=== PATIENT | male | born 1970 | race Caucasian/White ===

== ENCOUNTER 2020-12-28 10:47 | Outpatient (CLI) | payer BC, SELFPAY ==
--- NOTE | ~2020-12-28 | XR_ITS ---
XR chest 2V DATE: 12/28/2020 11:10 INDICATION: Shortness of breath, cough TECHNIQUE: PA and lateral views COMPARISON: None FINDINGS: There is prominent bilateral pulmonary hyperinflation with flattening the diaphragm, increa sed retrosternal airspace, consistent with COPD. No pulmonary infiltrate or consolidation, pleural effusion or pulmonary vascular congestion or pneumo thorax is detected. Normal heart size. No hilar or mediastinal enlargement. Included skeletal structures are unremarkable. IMPRESSION: COPD Reviewed, dictated and finalized at location A. IMPRESSION: COPD
== END 2020-12-28 10:48 | disposition home or self-care (01) ==
LOC: ANHIMG 10:53
PROVIDERS: PCP Family Medicine; Visit Provider Physician Assistant
DX: R06.02 Shortness of breath (principal); R05.9 Cough, unspecified; J44.9 Chronic obstructive pulmonary disease, unspecified
CPT/HCPCS: 71046

== ENCOUNTER 2021-01-20 00:37 | Day surgery (SDC) | payer BC, SELFPAY ==
[2021-01-11 14:51] VITALS: BMI 19.0
--- NOTE | 2021-01-19 10:33 | WPDANESEPPF ---
Anes - Initial Pre Proc Eval Procedure: Operation Date: 01/20/21 09:00 Proposed Procedures p Esophagogastroduodenoscopy & Colonoscopy - Chad Tobias MD Date/Time: 01/19/21 10:33 Surgeon: Chad Tobias MD Pre Op Diagnosis: melena, dysphagia Patient Data Age: 50 Gender: M Height: 1.91 m Weight: 69 kg Allergies Allergy/AdvReac Type Severity Reaction Status Date / Time bupropion Allergy Mild unk Verified 01/20/21 08:12 Sulfa (Sulfonamide Allergy Mild unk Verified 01/20/21 08:12 Antibiotics) cephalexin Allergy Unknown unk Verified 01/20/21 08:12 cyclobenzaprine Allergy Unknown unk Verified 01/20/21 08:12 Penicillins Allergy Unknown unk Verified 01/20/21 08:12 sulfadiazine Allergy Unknown unk Verified 01/20/21 08:12 sulfanilamide Allergy Unknown unk Verified 01/20/21 08:12 tetracycline Allergy Unknown unk Verified 01/20/21 08:12 Home Medications Medication Instructions Recorded Confirmed Type albuterol sulfate 90 mcg/actuation 1 puff INHALATION Q4H PRN 12/28/20 01/13/21 History aerosol inhaler fluticasone propionate 50 1 spray INTRANASAL Q12H #18.2 ml 12/28/20 01/20/21 Rx mcg/actuation nasal spray,suspension fluoxetine 10 mg tablet 10 mg PO DAILY #30 tablet 01/13/21 01/20/21 Rx Patient hx anesthesia problems: none Family hx anesthesia problems: none Results Review: All pre-operative results and documents have been reviewed as part of the pre-operative evaluation. [facility] Past Medical History Medical History (Updated 01/19/21 @ 10:33 by Darío Forman DO) COPD (chronic obstructive pulmonary disease) Surgical History Surgical History (Updated 01/19/21 @ 10:33 by Darío Forman DO) S/P lumbar fusion Social History Social History Social History: Smoking packs per day: 1 Smoking cigarettes per day: 20.0 Years smoked: 15 Smoking pack-years: 15.00 Tobacco type: cigarettes Second hand tobacco smoke exposure: Yes Alcohol intake: current Drinks per week: 1 Substance use: never Substance use type: does not use Living arrangements: with family Gender identity (if verbalized by the patient): Male Spiritual care concerns: No Anes - Eval Final PreProcedure Day of Procedure 01/19/21 10:33 Patient weight: thin Heart: regular rate and rhythm Lungs: clear to auscultation and normal air movement Airway: Mallampati scale class II Neurological: alert and oriented Last oral intake: >/= 8 hours ASA classification: III Emergent: no Anesthetic plan: proceed Anesthesia type and monitoring: general GIVS and standard monitoring Results Review: All pre-operative results and documents have been reviewed as part of the pre-operative evaluation. Informed Consent: The patient's anesthetic plan and its attendant risks and benefits were discussed with the patient/family/POA. Questions were solicited and answers provided to the satisfaction of the patient/family/POA.
[2021-01-20 08:13] VITALS: BP 108/67; PULSE 65; RESP 20; TEMP 36.5; O2SAT 99; BMI 19.6
[2021-01-20] MEDS: LACTATED RINGERS 1,000 ML 150 ML IV CONT (08:23)
--- NOTE | 2021-01-20 08:49 | WPDGICN ---
Assessment and Plan Assessment and plan (1) Blood in stool: Code(s): K92.1 - Melena Status: Acute Assessment and Plan: Patient describes blood admixed with his stools. Gives a distant history of colon ulcers that is of questionable historical significance. Plan is for colonoscopy to evaluate more thoroughly. High-fiber diet advised further recommendations will be given after endoscopy. CBC will be obtained because recent CBC revealed quite elevated hemoglobin. (2) Dysphagia: Code(s): R13.10 - Dysphagia, unspecified Status: Acute Assessment and Plan: Patient complains difficulty swallowing both solids and liquids. Etiology of this remains unclear. An EGD will be performed to exclude organic disease. Often this type of history is suggestive for spasms, or oropharyngeal type dysphagia. GI Consult Note Consult date/time: 01/20/21 08:49 HPI: Galo Sánchez III is a 50 year old male Presents for colonoscopy an EGD. Patient complains of blood in his stools. He describes this is brightest blood admixed with his bowel movements. There has been present for several months. He denies any associated abdominal pain. Patient does report is the child is 11 years old he had inflammation the colon. He apparently had some bleeding was told he had colon ulcerations and was treated with an antispasmodic agent . Patient has had no problems until just recently. Patient denies any weight loss. Patient's bowel habits are described as essentially normal. Additionally patient complains of difficulty swallowing. He states he has substernal pressure when swallowing all types of food including liquids and solids. He has tried no medications for this he has not tried antacids or other therapy an EGD has been requested to assess this. His family history is reported to be noncontributory. Review of Systems Review of Systems: All systems reviewed & are unremarkable except as noted in HPI and below PMFSH Past Medical History Medical History (Updated 01/20/21 @ 08:52 by Chad Tobias MD) COPD (chronic obstructive pulmonary disease) Surgical History Surgical History (Updated 01/19/21 @ 10:33 by Darío Forman DO) S/P lumbar fusion Social History Social History Social History: Smoking packs per day: 1 Smoking cigarettes per day: 20.0 Years smoked: 15 Smoking pack-years: 15.00 Tobacco type: cigarettes Second hand tobacco smoke exposure: Yes Alcohol intake: current Drinks per week: 1 Substance use: never Substance use type: does not use Living arrangements: with family Gender identity (if verbalized by the patient): Male Spiritual care concerns: No Meds Home Medications and Allergies Home Medications Medication Instructions Recorded Confirmed Type albuterol sulfate 90 mcg/actuation 1 puff INHALATION Q4H PRN 12/28/20 01/13/21 History aerosol inhaler fluticasone propionate 50 1 spray INTRANASAL Q12H #18.2 ml 12/28/20 01/20/21 Rx mcg/actuation nasal spray,suspension fluoxetine 10 mg tablet 10 mg PO DAILY #30 tablet 01/13/21 01/20/21 Rx Allergies Allergy/AdvReac Type Severity Reaction Status Date / Time bupropion Allergy Mild unk Verified 01/20/21 08:12 Sulfa (Sulfonamide Allergy Mild unk Verified 01/20/21 08:12 Antibiotics) cephalexin Allergy Unknown unk Verified 01/20/21 08:12 cyclobenzaprine Allergy Unknown unk Verified 01/20/21 08:12 Penicillins Allergy Unknown unk Verified 01/20/21 08:12 sulfadiazine Allergy Unknown unk Verified 01/20/21 08:12 sulfanilamide Allergy Unknown unk Verified 01/20/21 08:12 tetracycline Allergy Unknown unk Verified 01/20/21 08:12 Vital Signs Vital Signs - 24 hr 01/20/21 08:13 Temperature 97.7 F Pulse Rate 65 Respiratory Rate 20 Blood Pressure 108/67 Pulse Oximetry 99 Exam Narrative: Physical exam reveals pa
--- NOTE | 2021-01-20 09:22 | SUR.OPER ---
EGD ENDED 913, COLONOSCOPY STARTED 920
[2021-01-20 09:46] VITALS: BP 108/74; PULSE 60; RESP 16; O2SAT 98
[2021-01-20 09:56] VITALS: BP 110/72; PULSE 60; RESP 18; O2SAT 98
[2021-01-20 10:06] VITALS: BP 127/86; PULSE 64; RESP 18; O2SAT 98
[2021-01-20 10:26] LABS: Hematocrit 54.5 % (42.0-52.0); Hemoglobin 18.9 g/dL (14.0-18.0); Mean Corpuscular HGB Conc 34.7 g/dl (32-36); Mean Corpuscular Hemoglobin 37.6 pg (26-34); Mean Corpuscular Volume 108.6 fl (80-100); Mean Platelet Volume 10.3 fl (7.4-10.4); Platelet Count Result 182 k/mm3 (150-375); Red Blood Count 5.02 M/mm3 (4.6-6.20); Red Cell Distribution Width 12.4 % (11.5-14.5); White Blood Count 10.2 K/mm3 (4.5-10.0)
--- NOTE | 2021-01-20 10:37 | SUR.PHASEII ---
1020: CBC DRAWN AND SENT TO LAB. PT GIVEN DR BACH'S OFFICE NUMBER AND INSTRUCTIONS TO CALL TO MAKE AN APPOINTMENT. PT GIVEN RADIOLOGY SCHEDULING PHONE NUMBER TO SCHEDULE CT SCAN OF ABDOMEN AND CHEST. PT GIVEN ALL DISCHARGE INSTRUCTIONS. STATES UNDERSTANDING WITH NO FURTHER QUESTIONS.
== END 2021-01-20 10:39 | disposition home or self-care (01) ==
PROVIDERS: PCP Family Medicine; Visit Provider Internal Medicine Gastroenterology
PROC: 0DJ08ZZ Inspection of Upper Intestinal Tract, Via Natural or Artificial Opening Endoscopic (ICD-10-PCS; CPT 43235; principal; 2021-01-20 09:00)
DX: C15.5 Malignant neoplasm of lower third of esophagus (principal); K92.1 Melena; R13.19 Other dysphagia; K63.5 Polyp of colon; K64.8 Other hemorrhoids; J44.9 Chronic obstructive pulmonary disease, unspecified; M43.26 Fusion of spine, lumbar region; F17.210 Nicotine dependence, cigarettes, uncomplicated; Z79.899 Other long term (current) drug therapy; Z79.51 Long term (current) use of inhaled steroids
CPT/HCPCS: 43239; 45385; 36415; 85027; 88305; 88342; J2704; J7120

== ENCOUNTER 2021-01-27 06:35 | Outpatient (CLI) | payer BC, SELFPAY ==
--- NOTE | ~2021-01-27 | CT_ITS ---
EXAMINATION: CT chest abdomen w con DATE: 01/27/2021 07:20 INDICATION: Malignant neoplasm of the esophagus TECHNIQUE: Transaxial computed tomographic images of the chest and abdomen were obtained after the ad ministration of 100 cc of Omnipaque 350 intravenous contrast. The dose-length product (DLP) was 310.0 0 mGy-cm. Automated exposure control and iterative reconstruction technique were employed. COMPARISON: None FINDINGS: CHEST CT: There is severe emphysema. No suspicious pulmonary nodules are identified. The lungs are free of acut e opacities. There is no pleural effusion or pneumothorax. No pathologically enlarged thoracic lymph nodes are identified. Mediastinal lymph nodes measure up to 8 mm. The heart size is normal. There is enhancement and eccentric wall thickening of the distal esophagus near the gastroesophageal junction. There is mild thoracic spondylosis. ABDOMEN CT: The liver, spleen, pancreas, gallbladder, and right adrenal gland are normal. There are nodules measu ring 1.4 and 1.1 cm on the left adrenal gland. Gastrohepatic ligament lymph nodes measure up to 10 mm in short axis. There are no dilated loops of bowel. The kidneys are unremarkable. The appendix is no rmal. There are changes of posterior fusion in the lower lumbar spine. IMPRESSION: 1. Eccentric wall thickening of the distal esophagus likely reflecting patient's biopsy-proven malign marissa. 2. Gastrohepatic ligament lymph nodes at upper limits of normal in size. 3. Indeterminate left renal lesions. 4. Severe emphysema. Reviewed, dictated and finalized at location B. IMPRESSION: 1. Eccentric wall thickening of the distal esophagus likely reflecting patient' s biopsy-proven malignancy. 2. Gastrohepatic ligament lymph nodes at upper limits of normal in size. 3. Indeterminate left renal lesions. 4. Severe emphysema.
== END 2021-01-27 06:36 | disposition home or self-care (01) ==
LOC: ANHIMG 06:40
PROVIDERS: PCP Family Medicine; Visit Provider Internal Medicine Gastroenterology
DX: C15.9 Malignant neoplasm of esophagus, unspecified (principal); N28.9 Disorder of kidney and ureter, unspecified; J43.9 Emphysema, unspecified
CPT/HCPCS: 71260; 74160; Q9967

== ENCOUNTER 2021-02-08 16:18 | Outpatient (CLI) | payer BC, SELFPAY ==
--- NOTE | ~2021-02-08 | US_ITS ---
EXAMINATION: US venous doppler LE RT DATE: 02/08/2021 17:02 INDICATION: Right lower limb edema. TECHNIQUE: Grayscale ultrasound images without and with compression and Doppler ultrasound images of the right lower extremity veins were obtained. COMPARISON: None. FINDINGS: The visualized portions of right common femoral vein, profunda (deep) femoral vein, femoral vein, pop liteal vein, peroneal veins, posterior tibial veins, and greater saphenous vein outflow are patent. IMPRESSION: 1. No deep venous thrombosis. Reviewed, dictated and finalized at location A. [employer]
== END 2021-02-08 16:19 | disposition home or self-care (01) ==
PROVIDERS: PCP Family Medicine; Visit Provider Physician Assistant
DX: M79.604 Pain in right leg (principal); M79.89 Other specified soft tissue disorders
CPT/HCPCS: 93971

== ENCOUNTER 2021-02-10 12:12 | Outpatient (CLI) | payer BC, SELFPAY ==
--- NOTE | ~2021-02-10 | XR_ITS ---
XR foot RT min 3V DATE: 02/10/2021 12:34 INDICATION: Right foot burning sensation, pain. No injury TECHNIQUE: 4 views COMPARISON: None FINDINGS: No fracture or dislocation, periosteal reaction or bone destruction. Mild osteoarthritis at the first metatarsophalangeal joint. IMPRESSION: Mild osteoarthritis at first metatarsophalangeal joint Reviewed, dictated and finalized at location A. 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
== END 2021-02-10 12:13 | disposition home or self-care (01) ==
LOC: ANHIMG 12:16
PROVIDERS: PCP Family Medicine; Visit Provider Physician Assistant
DX: M19.071 Primary osteoarthritis, right ankle and foot (principal)
CPT/HCPCS: 73630

== ENCOUNTER 2021-04-13 08:51 | Outpatient (CLI) | payer BC, SELFPAY ==
--- NOTE | ~2021-04-13 | PE_ITS ---
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 12.171 mCi of 18-fluorodeoxyglucose (18-FDG) was adminis tered i.v. Low dose computed tomography (CT) images were acquired from the base of the brain to the p roximal thighs for attenuation correction and anatomic localization. Positron emission tomography (PE T) images were acquired in the same distribution beginning 86 minutes after injection. Images includi ng fused PET/CT images were reconstructed in axial, coronal, and sagittal planes. Automated exposure control technique was employed. The dose-length product was 351.74mGy-cm. COMPARISON: CT chest and abdomen dated 01/27/2021 FINDINGS: Head/neck: There is symmetric increased activity in the oral cavity, palatine tonsils, parotid glands and ocula r muscles without CT correlate, likely physiologic. No pathologically enlarged cervical lymphadenopat hy or suspicious foci of increased FDG uptake in the visualized head or neck. Chest: Moderate emphysema. No suspicious pulmonary nodules, pneumonia or pleural effusion. Heart size is nor mal. No pericardial effusion. Thoracic aorta is normal in caliber. No pathologically enlarged or FDG avid thoracic lymphadenopathy. Small sliding-type hiatal hernia. There is mild FDG uptake at the dist almost esophagus with maximal SUV of 2.4. Abdomen/pelvis/proximal thighs: There is more prominent increased FDG uptake in the proximal stomach just below the level of the thor acic hiatus with maximal SUV of 3.9. Mild uptake in the more distal stomach with the next previous de gree of FDG uptake with maximal SUV of 3.4 along the distal lesser curvature of the stomach. No evide nt associated masses assessment on the CT images is limited by the lack of intravenous contrast. Phys iologic renal accumulation and excretion of FDG activity in the kidneys, bladder and along portions o f ureters. 2 mm nonobstructing left renal stone. Normal degree and heterogenous pattern of increased uptake throughout the liver without radiologic correlate or dominant FDG avid lesion. The gallbladder , pancreas, spleen and right adrenal gland are normal. Again seen are couple approximately 1-1.5 cm l eft adrenal nodules with low density without FDG activity consistent with adenomas. Mild uptake scatt ered throughout the bowels without radiologic correlate, also likely physiologic. No other abnormal f oci of increased FDG uptake or pathologically enlarged lymphadenopathy in the abdomen, pelvis or prox imal thighs. Musculoskeletal: No suspicious lytic, blastic or FDG avid bone lesions. IMPRESSION: 1. Small sliding-type hiatal hernia with mild increased FDG uptake at the distalmost esophagus and mi ld to moderate increased FDG uptake at the proximal stomach just below level of the diaphragm. This c ould be related to reported biopsy proven distal esophageal carcinoma and/or gastritis or reflux esop hagitis. 2. No lesion suspicious for metastatic disease in the neck, chest, abdomen or pelvis. 3. Emphysema. Reviewed, dictated and finalized at location A. 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 Small sliding-type hiatal hernia with mild increased FDG uptake at the dista lmost esophagus and mild to moderate increased FDG uptake at the proximal stoma ch just below level of the diaphragm. This could be related to reported biopsy proven distal esophageal carcinoma and/or gastritis or reflux esophagitis. 2. No lesion suspicious for metastatic disease in the neck, chest, abdomen or p joshua. 3. Emphysema.
[2021-04-13 09:16] LABS: Glucose Point of Care 84 mg/dl (65-105)
== END 2021-04-13 08:52 | disposition home or self-care (01) ==
LOC: ANHIMG 08:55
PROVIDERS: PCP Family Medicine; Visit Provider Internal Medicine Hematology & Oncology
DX: Z03.89 Encounter for observation for other suspected diseases and conditions ruled out (principal); C15.9 Malignant neoplasm of esophagus, unspecified
CPT/HCPCS: 78815; A9552

== ENCOUNTER 2021-04-23 08:15 | Outpatient (CLI) | payer BC, SELFPAY ==
[2021-04-23 08:39] LABS: Basophils Absolute Auto 0.1 K/mm3 (0.0-0.1); Basophils Percent Auto 0.8 % (0.2-1.2); Eosinophils Absolute Auto 0.1 K/mm3 (0-0.3); Eosinophils Percent Auto 1.5 % (0-4.4); Hematocrit 55.9 % (42.0-52.0); Hemoglobin 18.9 g/dL (14.0-18.0); Immature Granulocyte Absolute 0.01 K/mm3 (0.00-0.031); Immature Granulocyte Percent A 0.1 % (0-0.5); Lymphocytes Absolute Auto 2.99 K/mm3 (0.9-3.2); Lymphocytes Percent Auto 38.2 % (18.3-44.2); Mean Corpuscular HGB Conc 33.8 g/dl (32-36); Mean Corpuscular Hemoglobin 33.6 pg (26-34); Mean Corpuscular Volume 99.3 fl (80-100); Mean Platelet Volume 10.1 fl (7.4-10.4); Monocytes Absolute Auto 0.7 K/mm3 (0.1-0.6); Monocytes Percent Auto 8.3 % (2.6-8.5); Neutrophils Percent Auto 51.1 % (45.5-73.1); Platelet Count Result 236 k/mm3 (150-375); Red Blood Count 5.63 M/mm3 (4.6-6.20); Red Cell Distribution Width 16.9 % (11.5-14.5); White Blood Count 7.8 K/mm3 (4.5-10.0)
[2021-04-23 09:07] LABS: INR 1.1; Partial Thromboplastin Time 31.2 SECONDS (22.3-36.8); Prothrombin Time 13.6 Seconds (11.1-14.7)
== END 2021-04-23 08:16 | disposition home or self-care (01) ==
LOC: ANHSURGERY 08:20
PROVIDERS: PCP Family Medicine; Visit Provider Surgery
DX: Z01.818 Encounter for other preprocedural examination (principal); C15.9 Malignant neoplasm of esophagus, unspecified
CPT/HCPCS: 36415; 85025; 85610; 85730

== ENCOUNTER 2021-05-12 13:50 | Inpatient (IN) | payer BC, SELFPAY ==
[2021-04-22 15:27] VITALS: BMI 18.7
--- NOTE | 2021-04-22 15:44 | PC.NURSE ---
Addendum entered by Holli Brantley RN 05/04/21 10:30: PT TO ARRIVE AT 0830 FOR SURGERY AT 1030. PT TO STOP ELIQUIS 2 DAYS PRIOR TO SURGERY. Original Note: Report to the Outpatient Waiting Room, entrance under the green pavilion located off [facility], at time 6:00 on date 04/29/21. OR Time: 7:30. - You will be asked a series of questions to screen for COVID 19 for your protection. - A mask is required within the hospital. - No visitors are allowed at this time. Preoperative COVID Testing Requirements: No COVID Test needed if: (proof is required; if not received patient will have Rapid Test prior to entry) - Patient has received COVID Vaccine at least 14 days prior to procedure date or - Patient has positive COVID test result within last 90 days of surgery date. COVID Test needed if above criteria is not met Patients may have clear liquids (water, carbonated beverages, clear teas, apple juice) until 3 hours prior to surgery (4:30) with a maximum of 20 ounces. - No food from midnight until time of surgery Take the following medications with a SIP of water the morning of surgery: FLUOXETINE Medications to discontinue per physician: ELIQUIS Date to take last dose: PER DR. AHYES Please no make-up, nail frisian, hairspray, perfume, deodorant, or body powder the day of surgery. No jewelry (including any body piercings) or valuables the day of surgery, leave them at home. Please take a shower or bath the night before, or the morning of, surgery with an antibacterial soap. Wear comfortable, loose fitting clothing. - Jewelry must be removed prior to entering the operating room. Rings and piercings that are not removed may be cut off. - The hospital will not accept responsibility for valuables. - Please leave all valuables, including medications, at home the day of surgery. If you are going home after surgery, a licensed power screwdriver operator must drive you home. - NO public transportation without another adult. - We recommend that an adult stay with you for 24 hours following discharge. - We also recommend that you do not drive, make important decision, drink alcoholic beverages, or take any drugs that were not prescribed by your health care provider for at least 24 hours after your discharge time. Follow any additional instructions given to you from your surgeon. Telephone instructions given to CONG PICKENS and asked if any additional questions and then verbalized understanding. Patient advised to call surgeon office or pre surgery nurse liaison [phone] if any additional questions.
--- NOTE | 2021-05-04 10:30 | PC.NURSE ---
Pt states no changes in medications since initial interview. Medical history changes updated. New instructions reviewed with pt. Pt denies further questions at this time.
--- NOTE | 2021-05-11 15:47 | PM.SD2 ---
Same Day Admit/Disch: HPI History of Present Illness Chief complaint: Adenocarcinoma of Esophagus Narrative: Galo Sánchez III is a 50 year old male Who had dysphagia and anemia. He had an EGD 01/20/2021. This showed adenocarcinoma of the distal esophagus. Patient saw Dr. Mariscal as well as a thoracic surgeon. He is to have FOLFOX chemotherapy prior to esophagectomy. He is taken to surgery now for placement of a Port-A-Cath for chemotherapy administration. [facility] Past Medical History Medical History COPD (chronic obstructive pulmonary disease) Depression Esophageal cancer History of DVT (deep vein thrombosis) Tobacco use Surgical History Surgical History (Updated 05/12/21 @ 20:01 by Claudine Lr NP) H/O colonoscopy with polypectomy History of esophagogastroduodenoscopy (EGD) History of fasciotomy Right lower extremity History of insertion of tunneled central venous catheter (CVC) with port S/P lumbar fusion Family History Family History (Updated 05/12/21 @ 20:03 by Claudine Lr NP) Unknown No problems noted. 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 The patient had 3 children but 1 in a motor vehicle accident and he has 1 stepson. The patient uses edible marijuana as well as CBD. He smokes 10-15 cigarettes a day. He drinks about half a bottle whiskey a day. He is employed full-time. Code status full code. Smoking packs per day: 1 Smoking cigarettes per day: 20.0 Years smoked: 20 Smoking pack-years: 20.00 Smoking status: Current every day smoker Tobacco type: cigarettes Second hand tobacco smoke exposure: Yes Alcohol intake: current Drinks per week: 56 Alcohol use details: 6/NIGHT - [employer] Substance use: current Substance use type: marijuana Last use: 05/11/21 Living arrangements: with family Gender identity (if verbalized by the patient): Male Sexual Orientation (if Verbalized by the Patient): Straight or Heterosexual Spiritual care concerns: No Same Day Admit/Disch: Med Pre-admit Medications Home Medications Medication Instructions Recorded Confirmed Type Eliquis 5 mg PO BID 04/22/21 05/12/21 History fluoxetine 10 mg tablet 10 mg PO BID #60 tablet 04/30/21 05/12/21 Rx Exam Const: General: cooperative, comfortable, no acute distress, alert and awake; No confusion Nutritional Appearance: thin and underweight Orientation/consciousness: No confusion HENMT: Head: normocephalic, atraumatic, no contusions and no scalp lesions Ears: external ears normal General nose exam: Normal external nose present Face and sinus: face symmetric and dry mucous membranes Mouth: Yes Normal oral and palatal mucosa present and Yes tongue normal Throat: posterior oropharynx normal Eyes: Conjunctivae: conjunctivae normal Sclera: sclerae normal Pupils: Equal, round and reactive pupils present EOM: EOMs intact bilaterally Neck: Neck: normal visual inspection, no lymphadenopathy, trachea midline, supple, nontender and no JVD Thyroid: abnormal thyroid Chest: Chest palpation & inspection: normal inspection of the chest, normal palpation of entire chest wall, no masses, no tenderness and No rash Resp: Effort & Inspection: normal respiratory effort Auscultation: clear to auscultation bilaterally Cardio: Rate: regular rate Rhythm: regular rhythm GI: Inspection: normal to inspection and scaphoid GI Palp: Yes Soft to palpation, No Tenderness to palpation present (GI), No Hepatomegaly present and No Splenomegaly present Auscultation: normal bowel sounds and normoactive bowel sounds : Penis: Yes normal penis Scrotum: scrotum normal Testes: Testes normal, no masses and no testicular tenderness Skin: General skin exam: normal color, turgor normal and no erythema Lesions: no lesions Rashes: no rashes Trauma: no l
--- NOTE | 2021-05-11 16:01 | WPDANESEPPF ---
Anes - Initial Pre Proc Eval Procedure: Operation Date: 05/12/21 10:30 Proposed Procedures p Insertion of Lisa Cath - Harris Leach MD Date/Time: 05/11/21 16:01 Surgeon: Harris Leach MD Pre Op Diagnosis: Adenocarcinoma of Esophagus Patient Data Age: 50 Gender: M Height: 1.91 m Weight: 68.04 kg Allergies Allergy/AdvReac Type Severity Reaction Status Date / Time bupropion Allergy Mild Rash Verified 05/12/21 08:45 Sulfa (Sulfonamide Allergy Mild Unknown Verified 05/12/21 08:45 Antibiotics) cephalexin Allergy Unknown Other Verified 05/12/21 08:45 Penicillins Allergy Unknown Unknown Verified 05/12/21 08:45 sulfadiazine Allergy Unknown Unknown Verified 05/12/21 08:45 sulfanilamide Allergy Unknown Unknown Verified 05/12/21 08:45 tetracycline Allergy Unknown Other Verified 05/12/21 08:45 Home Medications Medication Instructions Recorded Confirmed Type Eliquis 5 mg PO BID 04/22/21 05/12/21 History fluoxetine 10 mg tablet 10 mg PO BID #60 tablet 04/30/21 05/12/21 Rx Patient hx anesthesia problems: none Family hx anesthesia problems: none Results Review: All pre-operative results and documents have been reviewed as part of the pre-operative evaluation. [facility] Past Medical History Medical History COPD (chronic obstructive pulmonary disease) Depression Esophageal cancer History of DVT (deep vein thrombosis) Tobacco use Surgical History Surgical History (Updated 05/12/21 @ 20:01 by Claudine Lr NP) H/O colonoscopy with polypectomy History of esophagogastroduodenoscopy (EGD) History of fasciotomy Right lower extremity History of insertion of tunneled central venous catheter (CVC) with port S/P lumbar fusion Family History Family History (Updated 05/12/21 @ 20:03 by Claudine Lr NP) Unknown No problems noted. Social History Social History (Updated 05/12/21 @ 20:04 by Claudine Lr NP) Social History: and his is the durable power tax attorney for healthcare. The patient had 3 children but 1 in a motor vehicle accident and he has 1 stepson. The patient uses edible marijuana as well as CBD. He smokes 10-15 cigarettes a day. He drinks about half a bottle whiskey a day. He is employed full-time. Code status full code. Smoking packs per day: 1 Smoking cigarettes per day: 20.0 Years smoked: 20 Smoking pack-years: 20.00 Smoking status: Current every day smoker Tobacco type: cigarettes Second hand tobacco smoke exposure: Yes Alcohol intake: current Drinks per week: 56 Alcohol use details: 6/NIGHT - [employer] Substance use: current Substance use type: marijuana Last use: 05/11/21 Living arrangements: with family Gender identity (if verbalized by the patient): Male Sexual Orientation (if Verbalized by the Patient): Straight or Heterosexual Spiritual care concerns: No Anes - Eval Final PreProcedure Day of Procedure 05/11/21 16:01 Patient weight: normal Heart: regular rate and rhythm Lungs: clear to auscultation and normal air movement Airway: Mallampati scale class II Neurological: alert and oriented Last oral intake: >/= 8 hours ASA classification: III Emergent: no Anesthetic plan: proceed Anesthesia type and monitoring: general GIVS Results Review: All pre-operative results and documents have been reviewed as part of the pre-operative evaluation. Informed Consent: The patient's anesthetic plan and its attendant risks and benefits were discussed with the patient/family/POA. Questions were solicited and answers provided to the satisfaction of the patient/family/POA.
[2021-05-12] VITALS (13 sets, daily range): BP systolic 99–148; BP diastolic 67–87; PULSE 59–92; RESP 14–20; TEMP 36.1–36.8; O2SAT 90–98
--- NOTE | ~2021-05-12 | XR_ITS ---
EXAMINATION: XR chest 1V portable INDICATION: Chest tube on waterseal with bubbling in seal chamber TECHNIQUE: Portable AP chest at 1252 hours COMPARISON: 0913 hours FINDINGS: The left chest tube is unchanged in position. A moderate-sized left pneumothorax has accumu lated. The lungs are free of acute opacities. There is no or pleural effusion. There is a left subcla vian port catheter ending with its tip in the superior vena cava. No pathologically enlarged thoracic lymph nodes are identified. The heart size is normal. IMPRESSION: 1. Moderate-sized left pneumothorax. These findings were discussed with Dr. Ck Aleman MD at 1303 hours on 05/14/2021. Reviewed, dictated and finalized at location A. ER OPERATOR IMPRESSION: 1. Moderate-sized left pneumothorax. These findings were discussed with Dr. Ck Aleman MD at 1303 hours on .
--- NOTE | ~2021-05-12 | XR_ITS ---
EXAMINATION: XR fl guide central line place DATE: 05/12/2021 11:28 INDICATION: Port placement. TECHNIQUE: 2 intraoperative fluoroscopic views of the chest were obtained. COMPARISON: Chest single view 05/12/2021 FINDINGS: There is a left subclavian port with tip in superior vena cava. IMPRESSION: 1. Port tip in superior vena cava. Reviewed, dictated and finalized at location A. CULTURAL COMMODITIES GRADER
--- NOTE | ~2021-05-12 | XR_ITS ---
EXAMINATION: XR chest 1V portable INDICATION: Left pneumothorax TECHNIQUE: Portable AP chest at 0526 hours COMPARISON: 05/13/2021 FINDINGS: A left-sided chest tube thorax is identified. The lungs are free of acute opacities. A left subclavian Port-A-Cath ends with its tip in the distal superior vena cava. There is no pleural effus ion. The cardiomediastinal silhouette is normal. IMPRESSION: 1. Left chest tube unchanged in position. No pneumothorax identified. Reviewed, dictated and finalized at location A. PROGRAMMER
--- NOTE | ~2021-05-12 | XR_ITS ---
XR chest 2V 05/16/2021 08:20 Indication: Left pneumothorax Procedure: AP and lateral views of the chest Comparison: Comparison to multiple prior studies sequentially, with oldest reviewed study dated 05/14. Findings: No pneumothorax identified. Stable position to the left apical chest tube. Port catheter ti p in the SVC. No there is left lower lobe airspace disease which may represent atelectasis or develop ing pneumonia. Blunting of the costophrenic recesses. Possible small effusions. Impression: 1: No pneumothorax identified. 2: Left lower lobe airspace disease which may represent atelectasis or developing pneumonia. Reviewed, dictated and finalized at location A. STENCIL MAKER Impression: 1: No pneumothorax identified. 2: Left lower lobe airspace disease which may represent atelectasis or develop ing pneumonia.
--- NOTE | ~2021-05-12 | XR_ITS ---
EXAMINATION: XR chest 1V portable DATE: 05/16/2021 15:06 INDICATION: Status post chest tube removal TECHNIQUE: frontal view of the chest was obtained. COMPARISON: Chest radiograph dated 05/16/2021 FINDINGS: Unchanged mild streaky atelectasis/scarring at the left lung base. Emphysema with increased lucency a nd some architectural distortion in the bilateral upper lung zones. No new airspace opacities, pulmon taj edema, pleural effusion or pneumothorax. The cardiomediastinal silhouette is normal. Left subclav koki central venous port catheter with tip at the caudal superior vena cava. IMPRESSION: 1. Unchanged mild streaky left basilar atelectasis/scarring. No pneumothorax. 2. Emphysema. Reviewed, dictated and finalized at location A. IDENT OF THE [place]
--- NOTE | ~2021-05-12 | XR_ITS ---
EXAMINATION: XR chest 1V portable INDICATION: Chest tube placed to waterseal TECHNIQUE: Portable AP chest at 0913 hours COMPARISON: 0526 hours FINDINGS: A left-sided chest tube is unchanged in position. No pneumothorax is identified. The lungs are free of acute opacities. There is no pleural effusion. A left subclavian Port-A-Cath ends with it s tip in the superior vena cava. The cardiomediastinal silhouette is normal. IMPRESSION: 1. No pneumothorax identified. Reviewed, dictated and finalized at location A. R CANE PLANTER
--- NOTE | ~2021-05-12 | XR_ITS ---
EXAMINATION: XR chest-chest tube insert/pos DATE: 05/12/2021 12:46 INDICATION: Left pneumothorax status post chest tube placement. TECHNIQUE: A single frontal view of the chest was obtained. COMPARISON: Chest single view at 11:54 AM, chest CT 01/27/2021 FINDINGS: There are lucencies in the lungs, consistent with emphysema. No pleural effusion or pneumot horax. A left-sided chest tube is noted. There is a left subclavian port with tip in superior vena ca va. The heart size is normal. IMPRESSION: 1. No pneumothorax. Left-sided chest tube in expected position. 2. Emphysema. Reviewed, dictated and finalized at location A. ON JAMMER
--- NOTE | ~2021-05-12 | XR_ITS ---
EXAMINATION: XR chest port-a-cath/central DATE: 05/12/2021 12:06 INDICATION: Port placement. TECHNIQUE: A single frontal view of the chest was obtained. COMPARISON: Chest 2 views 12/28/2020 FINDINGS: There is a large left pneumothorax. There is atelectasis in left lung. No pleural effusion. The heart size is normal. There is a left subclavian port with tip in superior vena cava. IMPRESSION: 1. Large left pneumothorax. Dr. Leach was aware of this finding at the time of this dictation. 2. Port tip in superior vena cava. Reviewed, dictated and finalized at location A. H FREEZER OPERATOR IMPRESSION: 1. Large left pneumothorax. Dr. Leach was aware of this finding at the time of t his dictation. 2. Port tip in superior vena cava.
--- NOTE | ~2021-05-12 | US_ITS ---
EXAMINATION: US venous doppler [facility] DATE: 05/13/2021 13:25 INDICATION: Lower limb edema TECHNIQUE: Greer scale images without and with compression and Doppler images of the bilateral lower e xtremity veins were obtained. COMPARISON: 02/08/2021 FINDINGS: The right common femoral vein, profunda femoral vein, femoral vein, popliteal vein, peroneal trunk, p osterior tibial veins, and greater saphenous vein are patent. The left common femoral vein, profunda femoral vein, femoral vein, popliteal vein, peroneal trunk, po sterior tibial veins, and greater saphenous vein are patent. IMPRESSION: 1. Patent bilateral lower extremity veins. No evidence of deep venous thrombosis. Reviewed, dictated and finalized at location A. CTOR ADULT IMPRESSION: 1. Patent bilateral lower extremity veins. No evidence of deep venous thrombosi s.
--- NOTE | ~2021-05-12 | XR_ITS ---
EXAMINATION: XR chest 1V portable DATE: 05/15/2021 05:47 INDICATION: Left pneumothorax TECHNIQUE: frontal view of the chest was obtained. COMPARISON: Chest radiograph dated 05/14/2021 FINDINGS: Unchanged apically directed left chest tube. Left subclavian central venous port catheter tip at the midsuperior vena cava. No pneumothorax. Lungs are clear with no focal airspace opacities, pulmonary edema or pleural effusio n. The cardiomediastinal silhouette is normal. Visualized bones and soft tissues are unremarkable. IMPRESSION: 1. Resolution of prior left pneumothorax. No other acute cardiopulmonary disease . Reviewed, dictated and finalized at location A. LE DBA IMPRESSION: 1. Resolution of prior left pneumothorax. No other acute cardiopulmonary diseas e .
--- NOTE | ~2021-05-12 | XR_ITS ---
EXAMINATION: XR chest 1V portable INDICATION: Left pneumothorax TECHNIQUE: Portable AP chest at 0526 hours COMPARISON: 05/12/2021 FINDINGS: A left subclavian Port-A-Cath ends with its tip in the distal superior vena cava. A left-si ded chest tube is in expected position. No pneumothorax is identified. The lungs are free of acute op acities. There is no pleural effusion. The cardiomediastinal silhouette is normal. IMPRESSION: 1. Left chest tube in position. No pneumothorax identified. Reviewed, dictated and finalized at location A. WARE APPLICATION TESTER
--- NOTE | 2021-05-12 07:52 | WPDHPUPDATE1 ---
History and Physical Update Update Date/Time: 05/12/21 07:52 History and Physical has been reviewed, including an updated exam of the patient. There are NO changes in the patient's condition. Risks, benefits, and alternatives have been discussed and questions answered. Patient agrees to proceed with procedure.
[2021-05-12] MEDS: LACTATED RINGERS 1,000 ML 30 ML IV CONT (08:57)
[2021-05-12] MEDS: KETOROLAC 15 MG/ML VIAL (*BKC) IV PUSH (09:16)
--- NOTE | 2021-05-12 10:29 | W.PM.PROC2 ---
Procedure Note - Detailed Date of Procedure 05/12/21 Pre-op Diagnosis Adenocarcinoma of Esophagus, inadequate venous access for chemotherapy Post-op Diagnosis same Procedure Performed Placement left subclavian Smartport CT under fluoroscopy Surgeon Harris Leach MD Support Services Manager Renetta CROCKERA Anesthesia general (G IV S) and local (0.5% Marcaine with epinephrine) Indications Patient is found to have an adenocarcinoma of the lower esophagus. Plans are to proceed with FOLFOX chemotherapy and then resection. He is taken to surgery now for placement of Smartport CT for his chemotherapy. Findings None significant. Smartport CT tip at the distal SVC right atrial junction Description of Procedure Patient was taken to surgery and IV sedation was administered. Left subclavian and left neck areas were prepped and draped. The proposed left subclavian incision was marked on the skin. Local anesthetic was infiltrated into the skin and the deeper subcutaneous tissues. Incision was then made and dissection carried down through the subcutaneous. We dissected through the pectoralis major fascia and created a subfascial pocket. Additional local was infiltrated under the left clavicle. Patient was placed in steep Trendelenburg. The left subclavian vein was cannulated and a guidewire was able to be passed into the superior vena cava. Position of the guidewire was able to be documented by C-arm fluoroscopy. I then passed an introducer and sheath over the guidewire into the superior vena cava under fluoroscopy. The guidewire and introducer were then removed. The Smart Port CT tubing was passed through the sheath and into the right atrium. This was done under fluoroscopy. I then cut the tubing at 23-1/2 cm. I attached it to the reservoir and secured it with the rubberized attachment. The tip of the catheter was at the distal SVC right atrial junction as planned. The Smart Port CT reservoir was placed in the pocket. It aspirated blood well and flushed easily with heparin. I secured the reservoir to the pectoralis major with 3-0 silk suture. I rechecked the position which was good under fluoroscopy. The Smart Port CT aspirated blood and flushed easily with heparin. All looked good. The pocket was closed with layered 2-0 Vicryl running closure. The skin was closed with a running 4-0 Monocryl skin suture. Wound was dressed with Exofin surgical adhesive. Patient was awakened and taken to recovery in good condition. Sponge and needle counts were correct x2. Implants Smart Port CT left subclavian position Estimated Blood Loss -5 Drains No Packing No Pathology none sent Complications No immediate complications Condition stable Disposition same day
[2021-05-12] MEDS: ceFAZolin 2 GM/D5W 50 ML 2 GM/50 ML BAG IVPB (10:33)
[2021-05-12] MEDS: BUPIVACAINE/EPINEPHRINE 0.5% 30 ML VIAL 20 ML INFILTRATE (10:56)
[2021-05-12] MEDS: HEPARIN SODIUM 1,000 UNITS/ML VIAL 1000 UNITS XX (10:58)
--- NOTE | 2021-05-12 11:57 | SUR.PHASEII ---
PATIENT NEEDING INCREASE OF OXYGEN SINCE ARRIVAL TO OP AREA FOR SATS 88%-90%. NOW REQUIRING [address] MORRIS AWARE. PORTABLE CXR IN PROCESS
--- NOTE | 2021-05-12 12:54 | SUR.PHASEII ---
DR. MORRIS PLACED #[id number] CHEST TUBE TO LEFT CHEST OF PATIENT. CHEST TUBE CONNECTED TO -20 WALL SUCTION. PATIENT TOLERATED WELL. DR. MORRIS NOTIFIED PATIENT'S . AWAITING FLOOR TO CALL FOR REPORT.
--- NOTE | 2021-05-12 12:57 | SUR.PHASEII ---
PATIENT REMAINS ON 8 LITERS OXYGEN PER FM.
--- NOTE | 2021-05-12 13:49 | PC.NURSE ---
This patient, Galo Sánchez III, was admitted to Medical Room 245-. Patient/family oriented to hospital policies and general routines including ID bracelet, bed and alarms, visiting hours, pain management, procedures, bathroom and other care routines, personal items, smoking policy, room service/diet, and visiting hours. Information on how to activate the Rapid Response Team has been discussed. Patient/Family are encouraged to report perceived risks to care and to ask questions if they do not understand what they are told or what they should do.
--- NOTE | 2021-05-12 14:03 | PC.NURSE ---
Called and informed Lilaina Herrera FLOATING OPERATOR with General Surgery that the patient drinks 1/2 bottle of whiskey a night along with doing some Marijuana smoking and edibles. Informed Liliana that he also is a moderate risk on the suicide scale due to previous attempts in his 20's. Per Liliana she is going to consult with Dr. Leach and evaluate our CIWA protocol and make the appropriate recommendations.
[2021-05-12] MEDS: LACTATED RINGERS 1,000 ML 60 ML IV CONT (14:09)
[2021-05-12] MEDS: HYDROcodone/acetaminophen (*CRX) 10-325 MG TABLET 1 TAB PO ×2 (14:10→18:08)
--- NOTE | 2021-05-12 16:13 | P.OP_ITS ---
Procedure Note - Detailed Date of Procedure 05/12/21 Pre-op Diagnosis Left pneumothorax following Port-A-Cath placement Post-op Diagnosis same Procedure Performed Placement left chest tube Surgeon Harris Leach MD Anesthesia local (1% lidocaine with epinephrine) Indications Patient experience some hypoxia and left chest discomfort following Port-A-Cath placement. Postprocedure chest x-ray showed left pneumothorax. Chest tube is being placed for treatment. Findings Left chest tube in good position by post procedure chest x-ray. Lung is fully re-expanded. Description of Procedure Patient was in the step-down area. The left anterolateral chest was prepped with chlorhexidine. Local anesthetic was infiltrated just over the 6th rib in the anterior axillary line. Incision was made. Thorough infiltration of the subcutaneous intercostal muscles and into the pleura was carried out. Advancing a needle into the pleural space, air came freely 4th. A full 30 cc of local was infiltrated. I then made a tunnel over the 5th rib and into the pleural space. I then passed a 28 Indonesian trocar chest tube through this area and into the left chest. The tube was advanced to the apex. The tube was hooked to Pleur-Evac suction. 2-0 silk suture was used to close the incision and secured the chest tube. A sterile occlusive dressing was then placed with 4 x 4 gauze and 2 in tape. Chest tube was placed to 20 cm water continuous suction. Postprocedure chest x-ray looked good. Patient to be admitted thereafter. Estimated Blood Loss -5 Drains Yes (Left chest tube) Packing No Pathology none sent Complications No immediate complications Condition stable Disposition same day
[2021-05-12] MEDS: FLUoxetine HCL 10 MG CAPSULE PO (18:07)
[2021-05-12] MEDS: ENOXAPARIN 40 MG/0.4 ML SYRINGE SUB-Q (18:08)
--- NOTE | 2021-05-12 19:49 | PM.IMCN ---
Assessment and Plan Assessment and plan (1) Adenosquamous carcinoma of esophagus: Code(s): C15.9 - Malignant neoplasm of esophagus, unspecified Status: Acute Assessment and Plan: The patient is seeing Dr. Mariscal and is going to receive chemotherapy. Patient recently had a Port-A-Cath placed and sustained a pneumothorax on the left side. (2) Pneumothorax, left: Code(s): J93.9 - Pneumothorax, unspecified Status: Acute Assessment and Plan: Chest tube management per surgery. (3) Heavy alcohol use: Code(s): Z78.9 - Other specified health status Status: Chronic Assessment and Plan: Continue with CIWA scores and p.r.n. Librium with thiamin and folic acid. (4) Tobacco use: Code(s): Z72.0 - Tobacco use Status: Chronic Assessment and Plan: I offered the patient nicotine patch and he stated that he was okay. (5) COPD (chronic obstructive pulmonary disease): Qualifiers: Emphysema type: unspecified Code(s): J44.9 - Chronic obstructive pulmonary disease, unspecified Status: Chronic Assessment and Plan: P.r.n. albuterol HPI Data of Consult Consult date: 05/12/21 Requesting Physician: Harris Leach MD Primary Care Provider: Jenni Ellison MD Consult Narrative Narrative: Galo Sánchez III is a 50 year old male who developed a left pneumothorax following Port-A-Cath placement. He has a history of a adeno carcinoma the lower esophagus. 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 Hernia the patient also is complaining of some right leg pain after he had a fasciotomy to his right lower leg. The patient stated that he had only has 50% circulation to the right leg and has been causing him some pain. The patient stated he just received a pain pill due to the discomfort from the chest tube on the left side. The patient has a Port-A-Cath left upper chest and the chest tube to the left upper chest as well. The patient is supposed to have FOLFOX chemotherapy. The patient reports that he drinks a half a bottle whiskey a day. The patient denies any withdrawal symptoms. The hospitalist was asked to consult on the patient on the date of service of 05/12/2021. Review of Systems Review of Systems: All systems reviewed & are unremarkable except as noted in HPI and below Constitutional: Constitutional: Reports as per HPI and Reports no additional constitutional complaints Eyes: Eyes: Reports as per HPI and Reports no additional eye complaints ENT: Reports system reviewed and no additional complaints, except as documented and Reports Normal hearing present Cardiovascular: Cardiovascular: Reports no additional cardiovascular complaints Respiratory: Respiratory: Reports no additional respiratory complaints and Reports no additional respiratory complaints Gastrointestinal: Gastrointestinal: Reports as per HPI and Reports no additional gastrointestinal complaints Musculoskeletal: Musculoskeletal: Reports no additional musculoskeletal complaints Integumentary/Breasts: Skin/Breast: Reports system reviewed and no additional complaints, except as docu and Reports as per HPI Neurologic: Reports system reviewed and no additional complaints, except as documented, Reports as per HPI and Reports Normal hearing present Psychiatric: Psychiatric: Reports no additional psychiatric complaints and Reports as per HPI Endocrine: Endocrine: Reports no additional endocrine complaints Hematologic/Lymphatic: Hematologic/Lymphatic: Reports no additional hematologic/lymphatic complaints Allergic/Immunologic: Allergic/Immunologic: Reports no additional allergic/immunologic complaints PMFSH Past Medical History Medical History COPD (chronic obstructive pulmonary disease) Depression Esophageal cancer History of DVT (deep vein thrombosis) Tobacco use Surgical History Surgical History (Updated 05/12/21 @ 20:01 by Claudine Nieto
[2021-05-12] MEDS: SENNA/DOCUSATE SODIUM TABLET 2 TAB PO (21:29)
[2021-05-12] MEDS: HYDROcodone/acetaminophen (*CRX) 5-325 MG TABLET 1 TAB PO (23:34)
[2021-05-13] VITALS (9 sets, daily range): BP systolic 104–143; BP diastolic 73–91; PULSE 59–75; RESP 14–21; TEMP 36.1–36.9; O2SAT 95–100; BMI 17.9
[2021-05-13] MEDS: HYDROcodone/acetaminophen (*CRX) 10-325 MG TABLET 1 TAB PO ×2 (02:42→08:58)
[2021-05-13] MEDS: HYDROcodone/acetaminophen (*CRX) 5-325 MG TABLET 1 TAB PO (03:53)
[2021-05-13 05:50] LABS: Lactic Acid Reflex 0.7 mmol/L (0.7-2.1)
[2021-05-13 05:52] LABS: Anion Gap 3 mmol/L (8-16); Blood Urea Nitrogen 12 mg/dL (9-20); CRP 1.1 mg/dL (<1.0); Calcium 8.6 mg/dL (8.4-10.2); Carbon Dioxide 29 mmol/L (22-30); Chloride 100 mmol/L (98-107); Estimated CRCL calculation 116 ml/min; Estimated Glomerular Filt Rate > 60; Glucose 101 mg/dL (65-110); Lactate Dehydrogenase 460 U/L (313-618); Magnesium 1.8 mg/dL (1.6-2.3); Potassium 3.7 mmol/L (3.4-5.0); Sodium 132 mmol/L (137-145)
--- NOTE | 2021-05-13 08:28 | PM.PNGS ---
Progress Note: A&P Assessment and Plan (1) Pneumothorax, left: Code(s): J93.9 - Pneumothorax, unspecified Status: Acute Assessment and Plan: lung fully expanded and no air leak but patient unable to cough. Will increase analgesics and get patient up in chair today. If no leak again tomorrow will change chest tube to water seal. Repeat chest x-ray again tomorrow morning. (2) Admission for fitting of Port-A-Cath: Code(s): Z45.2 - Encounter for adjustment and management of vascular access device Status: Acute Assessment and Plan: In good position on chest x-ray (3) Tobacco use: Code(s): Z72.0 - Tobacco use Status: Chronic (4) Heavy alcohol use: Code(s): Z78.9 - Other specified health status Status: Chronic Assessment and Plan: appreciate hospitalist's consultation and management of any withdrawal symptoms. 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 neoplasm of esophagus, unspecified Status: Chronic Subjective Subjective Date/Time Seen: 05/13/21 08:28 Post Op day: 1 Patient reports: still having pain (From chest tube), no bowel movement and afebrile Review of Systems Review of Systems: All systems reviewed & are unremarkable except as noted in HPI and below Constitutional: Constitutional: Denies body ache(s), Denies chills, Denies fever(s) and Denies headache(s) Respiratory: Respiratory: Denies cough, Reports pain with cough, Denies dyspnea, Denies stridor and Denies wheezing Neurologic: Denies confusion and Denies headache(s) Psychiatric: Psychiatric: Reports anxiety Exam Const: General: cooperative, no acute distress, alert, awake, tired appearing and uncomfortable; No confusion Nutritional Appearance: underweight ( marfanoid) Orientation/consciousness: No confusion Chest: Chest palpation & inspection: other ( Chest tube dressing dry and intact) Resp: Effort & Inspection: abnormal respiratory effort ( poor respiratory effort, uncomfortable from chest tube) and no cough ( unable to cough when requested) Auscultation: diminished lung sounds bilateral in the lower lung marte Other: no pleural leak noted but patient unable to cough due to chest tube discomfort. Psych: Appearance: disheveled Speech and movement: Clear speech present and Slowed movement present (Neuro) Affect: Sad affect present and Blunted affect present Attitude: cooperative Insight: Fair insight present (Psych) Judgement: Fair judgement present (Psych) Objective Data Vital Signs Vital Signs: Vital Signs - 24 hr 05/12/21 09:10 05/12/21 11:27 05/12/21 11:55 Temperature 36.8 C Pulse Rate 92 82 80 Respiratory Rate 16 16 16 Blood Pressure 99/70 L 122/82 117/86 Pulse Oximetry 97 94 90 05/12/21 12:05 05/12/21 12:35 05/12/21 13:05 Temperature Pulse Rate 83 87 85 Respiratory Rate 16 16 16 Blood Pressure 119/80 111/67 120/82 Pulse Oximetry 90 90 98 05/12/21 13:25 05/12/21 13:42 05/12/21 14:00 Temperature 36.1 C L Pulse Rate 71 74 Respiratory Rate 16 14 Blood Pressure 120/82 132/85 Pulse Oximetry 98 96 95 05/12/21 17:40 05/12/21 18:10 05/12/21 19:45 Temperature 36.3 C L 36.1 C L Pulse Rate 68 66 Respiratory Rate 14 20 Blood Pressure 134/72 148/87 H Pulse Oximetry 97 93 98 05/12/21 23:00 05/13/21 03:00 05/13/21 03:15 Temperature 36.1 C L 36.1 C L Pulse Rate 59 L 59 L Respiratory Rate 20 20 Blood Pressure 147/78 H 143/91 H Pulse Oximetry 98 98 95 05/13/21 07:00 Temperature 36.2 C L Pulse Rate 62 Respiratory Rate 21 H Blood Pressure 128/73 Pulse Oximetry 100 Intake/Output Intake/Output: Intake & Output 05/10/21 05/11/21 05/12/21 05/13/21 23:59 23:59 23:59 23:59 Intake Total 1520 1230 Output Total 0 500 Balance 1520 730 Meds/Results Medications: Active Medications
[2021-05-13] MEDS: FLUoxetine HCL 10 MG CAPSULE PO ×2 (08:58→17:03)
[2021-05-13] MEDS: polyethylene glycoL 3350 17 GM POWD.PACK PO (08:59)
[2021-05-13] MEDS: THIAMINE HCL 100 MG TABLET PO (08:59)
[2021-05-13] MEDS: FOLIC ACID 1 MG TABLET PO (08:59)
--- NOTE | 2021-05-13 09:15 | WPDANESPN ---
Anes - Prog Note Post-Op Date/Time: 05/13/21 09:15 Cardiovascular status: normal Respiratory status: normal Airway patency: baseline and other (chest tube) Mental status: baseline Post-Op hydration status: normal Vital Signs: Last Vital Signs Temp 36.2 C L 05/13/21 07:00 Pulse 62 05/13/21 07:00 Resp 21 H 05/13/21 07:00 BP 128/73 05/13/21 07:00 Pulse Ox 95 05/13/21 09:12 Pain Score (VAS): 0 I/O: Intake & Output 05/12/21 05/13/21 05/13/21 23:59 07:59 15:59 Intake Total 470 1230 Output Total 500 Balance 470 730 Laboratory Tests 05/13/21 05:12 05/13/21 05/13/21 05/13/21 05:12 05:13 05:13 WBC Pending RBC Pending Hgb Pending Hct Pending MCV Pending MCH Pending MCHC Pending RDW Pending Plt Count Pending MPV Pending Immature Gran % (Auto) Pending Neut % (Auto) Pending Lymph % (Auto) Pending [place] % (Auto) Pending Eos % (Auto) Pending Baso % (Auto) Pending Lymph # (Auto) Pending [place] # (Auto) Pending Eos # (Auto) Pending Baso # (Auto) Pending Abs Immat Gran (auto) Pending Absolute Neuts (auto) Pending Absolute Nucleated RBC Pending Nucleated RBC % Pending Sodium 132 L Potassium 3.7 Chloride 100 Carbon Dioxide 29 Anion Gap 3 L BUN 12 Creatinine 0.60 L Estim Creat Clear Calc 116 Estimated GFR > 60 Glucose 101 Lactic Acid 0.7 Calcium 8.6 Magnesium 1.8 Lactate Dehydrogenase 460 C-Reactive Protein 1.1 Post-procedural complaints: none Patient Feedback: Patient satisfied with anesthetic care.
--- NOTE | 2021-05-13 09:56 | PM.IMPN ---
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 Mariscal and is going to receive chemotherapy. Patient recently had a Port-A-Cath placed and sustained a pneumothorax on the left side. (2) Pneumothorax, left: Code(s): J93.9 - Pneumothorax, unspecified Status: Acute Assessment and Plan: Chest tube management per surgery. Site appears clean dry and intact, no crepitus upon exam (3) Heavy alcohol use: Code(s): Z78.9 - Other specified health status Status: Chronic Assessment and Plan: Continue with CIWA scores and p.r.n. Librium with thiamin and folic acid. No active s/s of withdrawal (4) Tobacco use: Code(s): Z72.0 - Tobacco use Status: Chronic Assessment and Plan: Smoking cessation counseling given for 3 minutes, offered nicotine patch. Patient refused (5) COPD (chronic obstructive pulmonary disease): Qualifiers: Emphysema type: unspecified Code(s): J44.9 - Chronic obstructive pulmonary disease, unspecified Status: Chronic Assessment and Plan: P.r.n. albuterol Monitor Oxygen saturation, Oxygen via NC; wean oxygen as tolerated, keep SpO2 greater than 88% Subjective Date/time seen: 05/13/21 09:56 Patient was evaluated this morning at bedside. He was lying in bed appeared to be in moderate amount of pain. Patient reported that surgery has increased his pain management. He denies any additional shortness of breath or chest pain. Site to the left upper chest for the Port-A-Cath appears well approximated and dry. Chest tube to the left upper chest dressing is clean dry and intact, no crepitus around site. Surgery managingRadha Calderón remains on hold until 05/14/[address] Leach and will be on Lovenox sq 40mg daily. Patient denies any active s/s of alcohol withdrawal, continue to monitor. Review of Systems Review of Systems: All systems reviewed & are unremarkable except as noted in HPI and below Exam Const: General: cooperative, healthy appearing, comfortable, no acute distress, well developed, alert, awake and Physically active Nutritional Appearance: average body habitus and thin Orientation/consciousness: oriented to person, oriented to place, oriented to time and patient oriented x3 HENMT: Head: normal to inspection, No palpable skull fracture present, normocephalic and atraumatic Ears: hearing grossly normal bilaterally General nose exam: Normal external nose present Eyes: General: appearance normal, both eyes and all related structures Neck: Neck: normal visual inspection Chest: Chest palpation & inspection: other (Chest tube intact to left upper chest and Port-A-Cath site healing) Resp: Effort & Inspection: normal respiratory effort Auscultation: diminished lung sounds on the left in the upper lung marte Cardio: Palpation: normal PMI Rate: regular rate Rhythm: regular rhythm Heart sounds: S1 normal heart sound present and S2 normal heart sound present Peripheral pulses: Peripheral pulses 2+ throughout GI: Inspection: normal to inspection Auscultation: normal bowel sounds Rectal Exam: deferred Skin: General skin exam: normal color Lesions: no lesions Rashes: no rashes Trauma: no lacerations or abrasions Hair: normal Neuro: General: oriented to person, oriented to place, oriented to time and patient oriented x3 Cranial nerves: Yes Normal hearing present Cognition (Neuro): normal cognition Speech: normal speech Motor exam (neuro): Other motor observations present (Numbness to left thumb) Sensory Exam: Sensory deficit (Neuro) (Numbness to left thumb) Extrem: General: normal to inspection Right upper extremity: normal to inspection Left upper extremity: normal to inspection Right lower extremity: normal to inspection and edema Left lower ex
--- NOTE | 2021-05-13 10:14 | PCCARD ---
PATIENT REFUSED ECHOCARDIOGRAM, DUE TO BEING IN TOO MUCH PAIN AND COULD NOT TOLERATE ECHO EXAM. PATIENT ALSO HAS A LEFT SIDED CHEST TUBE AND COULD NOT GET IMAGES. INFORMED RN ILEANA OF PATIENT REFUSAL OF ECHO AT THIS TIME
[2021-05-13] MEDS: IBUPROFEN IV 800 MG/200 ML 800 MG/200 ML BAG 400 MG IVPB ×3 (11:09→21:29)
[2021-05-13] MEDS: ENOXAPARIN 40 MG/0.4 ML SYRINGE SUB-Q (11:10)
[2021-05-13 13:14] LABS: Basophils Percent Auto 0.3 % (0.2-1.2); Eosinophils Absolute Auto 0.1 K/mm3 (0-0.3); Eosinophils Percent Auto 0.8 % (0-4.4); Hematocrit 55.9 % (42.0-52.0); Hemoglobin 18.2 g/dL (14.0-18.0); Immature Granulocyte Absolute 0.04 K/mm3 (0.00-0.031); Immature Granulocyte Percent A 0.3 % (0-0.5); Lymphocytes Absolute Auto 1.94 K/mm3 (0.9-3.2); Mean Corpuscular HGB Conc 32.6 g/dl (32-36); Mean Corpuscular Hemoglobin 32.5 pg (26-34); Mean Corpuscular Volume 99.8 fl (80-100); Mean Platelet Volume 10.6 fl (7.4-10.4); Monocytes Absolute Auto 1.1 K/mm3 (0.1-0.6); Monocytes Percent Auto 8.4 % (2.6-8.5); Neutrophils Absolute Auto 9.7 K/mm3 (1.3-6.7); Neutrophils Percent Auto 75.2 % (45.5-73.1); Platelet Count Result 141 k/mm3 (150-375); Red Cell Distribution Width 17.2 % (11.5-14.5); White Blood Count 12.9 K/mm3 (4.5-10.0)
[2021-05-13] MEDS: SENNA/DOCUSATE SODIUM TABLET 2 TAB PO (21:30)
[2021-05-14] VITALS (8 sets, daily range): BP systolic 118–149; BP diastolic 65–87; PULSE 59–85; RESP 18–20; TEMP 35.7–36.7; O2SAT 94–98
[2021-05-14] MEDS: IBUPROFEN IV 800 MG/200 ML 800 MG/200 ML BAG 400 MG IVPB (05:19)
[2021-05-14] MEDS: HYDROcodone/acetaminophen (*CRX) 5-325 MG TABLET 1 TAB PO (05:49)
[2021-05-14 06:00] LABS: Anion Gap 4 mmol/L (8-16); Blood Urea Nitrogen 13 mg/dL (9-20); Calcium 8.6 mg/dL (8.4-10.2); Carbon Dioxide 31 mmol/L (22-30); Chloride 100 mmol/L (98-107); Estimated CRCL calculation 136 ml/min; Estimated Glomerular Filt Rate > 60; Glucose 108 mg/dL (65-110); Hematocrit 55.3 % (42.0-52.0); Hemoglobin 18.1 g/dL (14.0-18.0); Immature Platelet Fraction Pct 5.6 % (0.9-11.2); Mean Corpuscular HGB Conc 32.7 g/dl (32-36); Mean Corpuscular Hemoglobin 32.6 pg (26-34); Mean Corpuscular Volume 99.5 fl (80-100); Mean Platelet Volume 11.1 fl (7.4-10.4); Platelet Count Result 127 k/mm3 (150-375); Potassium 3.6 mmol/L (3.4-5.0); Red Blood Count 5.56 M/mm3 (4.6-6.20); Red Cell Distribution Width 16.8 % (11.5-14.5); Sodium 135 mmol/L (137-145); White Blood Count 9.5 K/mm3 (4.5-10.0)
[2021-05-14] MEDS: HYDROcodone/acetaminophen (*CRX) 10-325 MG TABLET 1 TAB PO ×3 (06:54→23:09)
--- NOTE | 2021-05-14 09:23 | PCCARD ---
PATIENT STILL HAS LEFT SIDED CHEST TUBE COVERING CHEST AREA NEEDED FOR ECHOCARDIOGRAM. SPOKE WITH REBECCA, [facility] AND SHE SAID WE COULD CANCEL THE ECHO ORDER AND IT CAN BE RE-ORDERED WHEN CHEST TUBE COMES OUT IF ECHOCARDIOGRAM IS STILL NEEDED.
[2021-05-14] MEDS: FOLIC ACID 1 MG TABLET PO (09:52)
[2021-05-14] MEDS: THIAMINE HCL 100 MG TABLET PO (09:52)
[2021-05-14] MEDS: polyethylene glycoL 3350 17 GM POWD.PACK PO (09:52)
[2021-05-14] MEDS: ENOXAPARIN 40 MG/0.4 ML SYRINGE SUB-Q (09:52)
[2021-05-14] MEDS: FLUoxetine HCL 10 MG CAPSULE PO ×2 (09:52→17:04)
--- NOTE | 2021-05-14 10:02 | PM.PNGS ---
Progress Note: A&P Assessment and Plan (1) Pneumothorax, left: Code(s): J93.9 - Pneumothorax, unspecified Status: Acute (2) Admission for fitting of Port-A-Cath: Code(s): Z45.2 - Encounter for adjustment and management of vascular access device Status: Acute Assessment and Plan: no pleural leak and lung fully expanded this morning by chest x-ray. Will try placing chest tube to water seal and repeat chest x-ray. 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 - Malignant neoplasm of esophagus, unspecified Status: Chronic (4) Tobacco use: Code(s): Z72.0 - Tobacco use Status: Chronic (5) Heavy alcohol use: Code(s): Z78.9 - Other specified health status Status: Chronic Subjective Subjective Date/Time Seen: 05/14/21 07:32 Patient reports: feels better, pain is less and afebrile Review of Systems Review of Systems: All systems reviewed & are unremarkable except as noted in HPI and below Constitutional: Constitutional: Denies chills, Reports fatigue, Denies fever(s) and Denies poor appetite Cardiovascular: Cardiovascular: Reports chest pain (Chest tube site, less painful today) and Denies dyspnea Respiratory: Respiratory: Denies cough, Denies dyspnea and Denies wheezing Neurologic: Denies confusion and Denies headache(s) Exam Const: General: cooperative, comfortable, no acute distress, alert, awake and well groomed; No confusion Nutritional Appearance: underweight Orientation/consciousness: patient oriented x3 and No confusion Chest: Chest palpation & inspection: other ( chest tube dressing dry and intact, no pleural leak noted) Resp: Effort & Inspection: normal respiratory effort Auscultation: clear to auscultation bilaterally Neuro: General: patient oriented x3, no focal motor deficits and No confusion Extrem: General: no calf tenderness and no edema Objective Data Vital Signs Vital Signs: Vital Signs - 24 hr 05/13/21 14:28 05/13/21 18:00 05/13/21 22:00 Temperature 36.9 C 36.3 C L 36.3 C L Pulse Rate 75 68 61 Respiratory Rate 16 14 20 Blood Pressure 104/76 113/85 126/86 Pulse Oximetry 97 97 99 05/14/21 04:42 05/14/21 06:00 Temperature 36.7 C Pulse Rate 59 L Respiratory Rate 20 Blood Pressure 137/76 Pulse Oximetry 97 98 Intake/Output Intake/Output: Intake & Output 05/11/21 05/12/21 05/13/21 05/14/21 23:59 23:59 23:59 23:59 Intake Total 1520 2200 1040 Output Total 0 950 800 Balance 1520 1250 240 Meds/Results Medications: Active Medications Generic Name Dose Route Start Last Admin Trade Name Freq PRN Reason Stop Dose Admin Acetaminophen 500 mg 05/12/21 13:15 Acetaminophen 500 Mg Tablet PO Q6H PRN Mild Pain (1-3) or Fever Hydrocodone Bitart/Acetaminophen 1 tab 05/12/21 13:15 05/14/21 05:49 Hydrocodone/Acetaminophen (*Crx) 5-325 Mg Tablet PO 1 tab Q4H PRN Administration Pain Rated 4-6 Hydrocodone Bitart/Acetaminophen 1 tab 05/12/21 13:15 05/14/21 06:54 Hydrocodone/Acetaminophen (*Crx) 10-325 Mg Tablet PO 1 tab Q6H PRN Administration Pain Rated 7-10 Albuterol 2 puff 05/12/21 20:11 Albuterol Sulfate (*Sp) Aerosol 1 Puff INHALATION Q6HRT PRN Shortness Of Breath Chlordiazepoxide HCl 25 mg 05/12/21 19:47 Chlordiazepoxide (*Crx) 25 Mg Capsule PO Q6H PRN Withdrawal Enoxaparin Sodium 40 mg 05/13/21 09:00 05/14/21 09:52 Enoxaparin 40 Mg/0.4 Ml Syringe SUB-Q 40 mg DAILY JONATHON Administration Fluoxetine HCl 10 mg 05/12/21 17:00 05/14/21 09:52 Fluoxetine Hcl 10 Mg Capsule PO 10 mg BID JONATHON Administration Folic Acid 1 mg 05/13/21 09:00 05/14/21 09:52 Folic Acid 1 Mg Tablet PO 1 mg DAILY JONATHON Administration Morphine Sulfate 2 mg 05/13/21 08:24 Morphine Sulfate (*Crx) 2 Mg/Ml Inj IV PUSH Q2H PRN Pain Rated 4-6 Morphine Sulfate 4 mg 05/13/21 08:49 Morphine Sulfate (*Crx)
--- NOTE | 2021-05-14 10:25 | PM.IMPN ---
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 Mariscal and is going to receive chemotherapy. Patient recently had a Port-A-Cath placed and sustained a pneumothorax on the left side. (2) Pneumothorax, left: Code(s): J93.9 - Pneumothorax, unspecified Status: Acute Assessment and Plan: Chest tube management per surgery. Site appears clean dry and intact, no crepitus upon exam (3) Heavy alcohol use: Code(s): Z78.9 - Other specified health status Status: Chronic Assessment and Plan: Continue with CIWA scores and p.r.n. Librium with thiamin and folic acid. No active s/s of withdrawal (4) Tobacco use: Code(s): Z72.0 - Tobacco use Status: Chronic Assessment and Plan: Smoking cessation counseling given for 3 minutes, offered nicotine patch. Patient refused Continue daily conversation (5) COPD (chronic obstructive pulmonary disease): Qualifiers: Emphysema type: unspecified Code(s): J44.9 - Chronic obstructive pulmonary disease, unspecified Status: Chronic Assessment and Plan: P.r.n. albuterol Monitor Oxygen saturation, Oxygen via NC; wean oxygen as tolerated, keep SpO2 greater than 88% Subjective Date/time seen: 05/14/21 10:25 Patient is alert and oriented this morning sitting upright in bed. Appeared to be in better spirits this morning. 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 Site to the left upper chest for a Port-A-Cath appears clean and dry, as well approximated. Patient's pain is controlled. No significant overnight events. Patient denies any chest pain or shortness of breath. Review of Systems Review of Systems: All systems reviewed & are unremarkable except as noted in HPI and below Constitutional: Constitutional: Reports as per HPI and Reports no additional constitutional complaints Eyes: Eyes: Reports as per HPI and Reports no additional eye complaints ENT: Reports system reviewed and no additional complaints, except as documented and Reports Normal hearing present Cardiovascular: Cardiovascular: Reports no additional cardiovascular complaints Respiratory: Respiratory: Reports no additional respiratory complaints and Reports no additional respiratory complaints Gastrointestinal: Gastrointestinal: Reports as per HPI and Reports no additional gastrointestinal complaints Musculoskeletal: Musculoskeletal: Reports no additional musculoskeletal complaints Integumentary/Breasts: Skin/Breast: Reports system reviewed and no additional complaints, except as docu and Reports as per HPI Neurologic: Reports system reviewed and no additional complaints, except as documented, Reports as per HPI, Reports Normal hearing present and Reports Sensory deficit (Neuro) (Numbness to left thumb) Psychiatric: Psychiatric: Reports no additional psychiatric complaints and Reports as per HPI Endocrine: Endocrine: Reports no additional endocrine complaints Hematologic/Lymphatic: Hematologic/Lymphatic: Reports no additional hematologic/lymphatic complaints Allergic/Immunologic: Allergic/Immunologic: Reports no additional allergic/immunologic complaints Exam Const: General: cooperative, healthy appearing, comfortable, no acute distress, well developed, alert, awake and Physically active Nutritional Appearance: average body habitus and thin Orientation/consciousness: oriented to person, oriented to place, oriented to time and patient oriented x3 HENMT: Head: normal to inspection, No palpable skull fracture present, normocephalic and atraumatic Ears: hearing grossly normal bilaterally General nose exam: Normal external nose present Eyes: General: appearance normal, both eyes and all related structures Neck:
[2021-05-14] MEDS: SENNA/DOCUSATE SODIUM TABLET 2 TAB PO (20:01)
[2021-05-15] VITALS (11 sets, daily range): BP systolic 101–133; BP diastolic 60–79; PULSE 59–85; RESP 14–20; TEMP 35.8–36.5; O2SAT 94–99
[2021-05-15] MEDS: ONDANSETRON INJ 4 MG/2 ML VIAL IV PUSH (03:56)
[2021-05-15] MEDS: MORPHINE SULFATE (*CRX) 2 MG/ML INJ IV PUSH (03:57)
[2021-05-15] MEDS: HYDROcodone/acetaminophen (*CRX) 10-325 MG TABLET 1 TAB PO (05:34)
[2021-05-15] MEDS: FOLIC ACID 1 MG TABLET PO (08:55)
[2021-05-15] MEDS: ACETAMINOPHEN 500 MG TABLET PO (08:55)
[2021-05-15] MEDS: THIAMINE HCL 100 MG TABLET PO (08:55)
[2021-05-15] MEDS: FLUoxetine HCL 10 MG CAPSULE PO ×2 (08:55→16:40)
[2021-05-15] MEDS: polyethylene glycoL 3350 17 GM POWD.PACK PO (08:56)
[2021-05-15] MEDS: ENOXAPARIN 40 MG/0.4 ML SYRINGE SUB-Q (08:56)
--- NOTE | 2021-05-15 10:02 | PM.PNGS ---
Progress Note: A&P Assessment and Plan (1) Pneumothorax, left: Code(s): J93.9 - Pneumothorax, unspecified Status: Acute Assessment and Plan: Will continue chest tube to suction today 2 view CXR tomorrow with chest tube to water seal Will remove chest tube when no more air leak or pneumothorax noted while maintaining water seal. (2) Heavy alcohol use: Code(s): Z78.9 - Other specified health status Status: Chronic 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 - Malignant neoplasm of esophagus, unspecified Status: Chronic (4) B-cell lymphoma: Code(s): C85.10 - Unspecified B-cell lymphoma, unspecified site Status: Acute (5) Depression: Code(s): F32.A - Depression, unspecified Status: Chronic (6) COPD (chronic obstructive pulmonary disease): Qualifiers: Emphysema type: unspecified Code(s): J44.9 - Chronic obstructive pulmonary disease, unspecified Status: Chronic Subjective Subjective Date/Time Seen: 05/15/21 10:02 Interval history: Pain from chest tube, otherwise no concerns. Working on incentive spirometer. No SOB. Exam Resp: Effort & Inspection: normal respiratory effort Auscultation: clear to auscultation bilaterally Other: Chest tube on suction--no air leak noted Objective Data Vital Signs Vital Signs: Vital Signs - 24 hr 05/14/21 14:00 05/14/21 15:01 05/14/21 21:01 Temperature 36.3 C L Pulse Rate 69 85 Respiratory Rate 18 Blood Pressure 149/87 H Pulse Oximetry 95 96 95 05/14/21 22:00 05/15/21 02:45 05/15/21 06:00 Temperature 36.5 C 36.2 C L 36.1 C L Pulse Rate 80 63 59 L Respiratory Rate 18 18 20 Blood Pressure 141/65 H 130/76 122/79 Pulse Oximetry 96 96 98 05/15/21 08:20 05/15/21 08:45 Temperature Pulse Rate 85 Respiratory Rate Blood Pressure Pulse Oximetry 97 97 Intake/Output Intake/Output: Intake & Output 05/12/21 05/13/21 05/14/21 05/15/21 23:59 23:59 23:59 23:59 Intake Total 1520 2200 1500 700 Output Total 0 950 1350 900 Balance 1520 1250 150 -200 Meds/Results Medications: Active Medications Generic Name Dose Route Start Last Admin Trade Name Freq PRN Reason Stop Dose Admin Acetaminophen 500 mg 05/12/21 13:15 05/15/21 08:55 Acetaminophen 500 Mg Tablet PO 500 mg Q6H PRN Administration Mild Pain (1-3) or Fever Hydrocodone Bitart/Acetaminophen 1 tab 05/12/21 13:15 05/14/21 05:49 Hydrocodone/Acetaminophen (*Crx) 5-325 Mg Tablet PO 1 tab Q4H PRN Administration Pain Rated 4-6 Hydrocodone Bitart/Acetaminophen 1 tab 05/12/21 13:15 05/15/21 05:34 Hydrocodone/Acetaminophen (*Crx) 10-325 Mg Tablet PO 1 tab Q6H PRN Administration Pain Rated 7-10 Albuterol 2 puff 05/12/21 20:11 Albuterol Sulfate (*Sp) Aerosol 1 Puff INHALATION Q6HRT PRN Shortness Of Breath Chlordiazepoxide HCl 25 mg 05/12/21 19:47 Chlordiazepoxide (*Crx) 25 Mg Capsule PO Q6H PRN Withdrawal Enoxaparin Sodium 40 mg 05/13/21 09:00 05/15/21 08:56 Enoxaparin 40 Mg/0.4 Ml Syringe SUB-Q 40 mg DAILY JONATHON Administration Fluoxetine HCl 10 mg 05/12/21 17:00 05/15/21 08:55 Fluoxetine Hcl 10 Mg Capsule PO 10 mg BID JONATHON Administration Folic Acid 1 mg 05/13/21 09:00 05/15/21 08:55 Folic Acid 1 Mg Tablet PO 1 mg DAILY JONATHON Administration Morphine Sulfate 2 mg 05/13/21 08:24 05/15/21 03:57 Morphine Sulfate (*Crx) 2 Mg/Ml Inj IV PUSH 2 mg Q2H PRN Administration Pain Rated 4-6 Morphine Sulfate 4 mg 05/13/21 08:49 Morphine Sulfate (*Crx) 4 Mg/Ml Inj IV PUSH Q2H PRN Pain Rated 7-10 Naloxone HCl 0.1 mg 05/12/21 13:15 Naloxone Hcl 0.4 Mg/Ml Vial IV PUSH Q2M PRN Opiate Reversal Ondansetron HCl 4 mg 05/12/21 13:15 05/15/21 03:56 Ondansetron Inj 4 Mg/2 Ml Vial IV PUSH 4 mg Q4H PRN Administration Nausea And Vomiting Perflutren Li
--- NOTE | 2021-05-15 10:07 | PM.IMPN ---
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 Mariscal and is going to receive chemotherapy. Patient recently had a Port-A-Cath placed and sustained a pneumothorax on the left side. (2) Pneumothorax, left: Code(s): J93.9 - Pneumothorax, unspecified Status: Acute Assessment and Plan: Chest tube management per surgery. Site appears clean dry and intact, no crepitus upon exam (3) Heavy alcohol use: Code(s): Z78.9 - Other specified health status Status: Chronic Assessment and Plan: Continue with CIWA scores and p.r.n. Librium with thiamin and folic acid. No active s/s of withdrawal (4) Tobacco use: Code(s): Z72.0 - Tobacco use Status: Chronic Assessment and Plan: Smoking cessation counseling given for 3 minutes, offered nicotine patch. Patient refused Continue daily conversation (5) COPD (chronic obstructive pulmonary disease): Qualifiers: Emphysema type: unspecified Code(s): J44.9 - Chronic obstructive pulmonary disease, unspecified Status: Chronic Assessment and Plan: P.r.n. albuterol Monitor Oxygen saturation, Oxygen via NC; wean oxygen as tolerated, keep SpO2 greater than 88% Subjective Date/time seen: 05/15/21 10:07 No significant changes in the patient's medical status. Comorbidities are managed. Labs are stable and vital signs are stable. During my exam this morning the patient was hooked up to low suction with a chest tube. He was able to eat his breakfast this morning and enjoy the additional nutritional supplement that was provided at breakfast. Patient denies any chest pain, shortness of breath, nausea, vomiting, or diarrhea. Patient is doing well. Will monitor from a distance. Contact the hospitalist team if further medical comanagement required. Review of Systems Review of Systems: All systems reviewed & are unremarkable except as noted in HPI and below Exam Const: General: cooperative, healthy appearing, comfortable, no acute distress, well developed, alert, awake and Physically active Nutritional Appearance: average body habitus and thin Orientation/consciousness: oriented to person, oriented to place, oriented to time and patient oriented x3 HENMT: Head: normal to inspection, No palpable skull fracture present, normocephalic and atraumatic Ears: hearing grossly normal bilaterally General nose exam: Normal external nose present Eyes: General: appearance normal, both eyes and all related structures Neck: Neck: normal visual inspection Chest: Chest palpation & inspection: other (Chest tube intact to left upper chest and Port-A-Cath site healing) Resp: Effort & Inspection: normal respiratory effort Auscultation: diminished lung sounds on the left in the upper lung marte Cardio: Palpation: normal PMI Rate: regular rate Rhythm: regular rhythm Heart sounds: S1 normal heart sound present and S2 normal heart sound present Peripheral pulses: Peripheral pulses 2+ throughout GI: Inspection: normal to inspection Auscultation: normal bowel sounds Rectal Exam: deferred Skin: General skin exam: normal color Lesions: no lesions Rashes: no rashes Trauma: no lacerations or abrasions Hair: normal Neuro: General: oriented to person, oriented to place, oriented to time and patient oriented x3 Cranial nerves: Yes Normal hearing present Cognition (Neuro): normal cognition Speech: normal speech Motor exam (neuro): Other motor observations present (Numbness to left thumb) Sensory Exam: Sensory deficit (Neuro) (Numbness to left thumb) Extrem: General: normal to inspection Right upper extremity: normal to inspection Left upper extremity: normal to inspection Right lower extremity: normal to inspection and edema Left lower extremity: normal to
[2021-05-15] MEDS: SENNA/DOCUSATE SODIUM TABLET 2 TAB PO (20:01)
[2021-05-16] VITALS (7 sets, daily range): BP systolic 102–144; BP diastolic 59–78; PULSE 64–85; RESP 15–16; TEMP 36–36.4; O2SAT 93–94
[2021-05-16] MEDS: HYDROcodone/acetaminophen (*CRX) 10-325 MG TABLET 1 TAB PO ×2 (00:22→06:27)
[2021-05-16] MEDS: FOLIC ACID 1 MG TABLET PO (08:51)
[2021-05-16] MEDS: FLUoxetine HCL 10 MG CAPSULE PO (08:51)
[2021-05-16] MEDS: THIAMINE HCL 100 MG TABLET PO (08:52)
[2021-05-16] MEDS: ENOXAPARIN 40 MG/0.4 ML SYRINGE SUB-Q (08:53)
[2021-05-16] MEDS: MORPHINE SULFATE (*CRX) 2 MG/ML INJ IV PUSH (11:32)
--- NOTE | 2021-05-16 11:34 | PM.PNGS ---
Progress Note: A&P Assessment and Plan (1) Pneumothorax, left: Code(s): J93.9 - Pneumothorax, unspecified Status: Acute Assessment and Plan: Chest tube removed at bedside. Dressing applied. Will get repeat CXR around 3pm today. If no pneumothorax identified, will plan to discharge home this evening. (2) Heavy alcohol use: Code(s): Z78.9 - Other specified health status Status: Chronic 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 - Malignant neoplasm of esophagus, unspecified Status: Chronic (4) B-cell lymphoma: Code(s): C85.10 - Unspecified B-cell lymphoma, unspecified site Status: Acute (5) Depression: Code(s): F32.A - Depression, unspecified Status: Chronic (6) COPD (chronic obstructive pulmonary disease): Qualifiers: Emphysema type: unspecified Code(s): J44.9 - Chronic obstructive pulmonary disease, unspecified Status: Chronic Subjective Subjective Date/Time Seen: 05/16/21 11:35 Interval history: Chest tube has been on water seal since this AM. No recurrent SOB. Exam Resp: Effort & Inspection: normal respiratory effort Auscultation: clear to auscultation bilaterally Other: Chest tube on water seal--no air leak noted Objective Data Vital Signs Vital Signs: Vital Signs - 24 hr 05/15/21 16:45 05/15/21 18:00 05/15/21 20:00 Temperature 36.1 C L 36.1 C L Pulse Rate 66 66 Pulse Rate [Right Pedal (Dorsalis Pedis)] 64 Respiratory Rate 17 17 Blood Pressure 112/67 112/67 Pulse Oximetry 97 97 05/15/21 20:20 05/15/21 20:47 05/15/21 22:00 Temperature 36.5 C Pulse Rate 78 68 66 Pulse Rate [Right Pedal (Dorsalis Pedis)] Respiratory Rate 20 20 20 Blood Pressure 133/60 Pulse Oximetry 94 96 99 05/16/21 00:00 05/16/21 02:00 05/16/21 06:00 Temperature 36.4 C L 36.2 C L Pulse Rate 70 79 Pulse Rate [Right Pedal (Dorsalis Pedis)] 64 Respiratory Rate 16 16 Blood Pressure 144/78 H 118/59 L Pulse Oximetry 93 94 05/16/21 08:00 05/16/21 10:00 Temperature 36.1 C L Pulse Rate 80 Pulse Rate [Right Pedal (Dorsalis Pedis)] 66 Respiratory Rate 15 Blood Pressure 118/66 Pulse Oximetry 93 Intake/Output Intake/Output: Intake & Output 05/13/21 05/14/21 05/15/21 05/16/21 23:59 23:59 23:59 23:59 Intake Total 2200 1500 1820 1260 Output Total 950 1350 1600 1300 Balance 1250 150 220 -40 Meds/Results Medications: Active Medications Generic Name Dose Route Start Last Admin Trade Name Freq PRN Reason Stop Dose Admin Acetaminophen 500 mg 05/12/21 13:15 05/15/21 08:55 Acetaminophen 500 Mg Tablet PO 500 mg Q6H PRN Administration Mild Pain (1-3) or Fever Hydrocodone Bitart/Acetaminophen 1 tab 05/12/21 13:15 05/14/21 05:49 Hydrocodone/Acetaminophen (*Crx) 5-325 Mg Tablet PO 1 tab Q4H PRN Administration Pain Rated 4-6 Hydrocodone Bitart/Acetaminophen 1 tab 05/12/21 13:15 05/16/21 06:27 Hydrocodone/Acetaminophen (*Crx) 10-325 Mg Tablet PO 1 tab Q6H PRN Administration Pain Rated 7-10 Albuterol 2 puff 05/12/21 20:11 Albuterol Sulfate (*Sp) Aerosol 1 Puff INHALATION Q6HRT PRN Shortness Of Breath Chlordiazepoxide HCl 25 mg 05/12/21 19:47 Chlordiazepoxide (*Crx) 25 Mg Capsule PO Q6H PRN Withdrawal Enoxaparin Sodium 40 mg 05/13/21 09:00 05/16/21 08:53 Enoxaparin 40 Mg/0.4 Ml Syringe SUB-Q 40 mg DAILY JONATHON Administration Fluoxetine HCl 10 mg 05/12/21 17:00 05/16/21 08:51 Fluoxetine Hcl 10 Mg Capsule PO 10 mg BID JONATHON Administration Folic Acid 1 mg 05/13/21 09:00 05/16/21 08:51 Folic Acid 1 Mg Tablet PO 1 mg DAILY JONATHON Administration Morphine Sulfate 2 mg 05/13/21 08:24 05/16/21 11:32 Morphine Sulfate (*Crx) 2 Mg/Ml Inj IV PUSH 2 mg Q2H PRN Administration Pain Rated 4-6 Morphine Sulfate 4 mg 05/13/21 08:49 Morphine Sulfate (*Crx) 4 Mg/Ml Inj IV PUS
== END 2021-05-16 17:36 | disposition home or self-care (01) | DRG 167 ==
LOC: ANHSURGERY 13:59 → ANH2MED 13:59
PROVIDERS: Nurse Practitioner; Admitting Provider Surgery; PCP Family Medicine; Visit Provider Surgery
PROC: 0JH60WZ Insertion of Totally Implantable Vascular Access Device into Chest Subcutaneous Tissue and Fascia, Open Approach (ICD-10-PCS; principal; 2021-05-12 10:30)
DX: J95.811 Postprocedural pneumothorax (principal); C15.5 Malignant neoplasm of lower third of esophagus; C85.19 Unspecified B-cell lymphoma, extranodal and solid organ sites; Y83.8 Other surgical procedures as the cause of abnormal reaction of the patient, or of later complication, without mention of misadventure at the time of the procedure; J43.9 Emphysema, unspecified; R01.1 Cardiac murmur, unspecified; F17.210 Nicotine dependence, cigarettes, uncomplicated; F10.20 Alcohol dependence, uncomplicated; F32.A Depression, unspecified; Z79.01 Long term (current) use of anticoagulants; Z79.899 Other long term (current) drug therapy; Z86.718 Personal history of other venous thrombosis and embolism; Z88.0 Allergy status to penicillin; Z88.1 Allergy status to other antibiotic agents; Z88.2 Allergy status to sulfonamides
CPT/HCPCS: 36415; 71045; 71046; 77001; 80048; 83605; 83615; 83735; 85025; 85027; 85055; 86140; 93970; A9270; C1788; G0378; J0690; J1100; J1170; J1644; J1650; J1741; J1885; J2250; J2270; J2405; J2704; J3010; J7030; J7120

== ENCOUNTER 2021-06-19 17:48 | Emergency (ER) | payer BC, SELFPAY ==
[2021-06-19 17:50] VITALS: BP 98/54; PULSE 106; RESP 16; TEMP 35.9; O2SAT 96
--- NOTE | 2021-06-19 17:55 | ED.LOWEXIN ---
HPI - Extremity Injury (Lower) General Chief Complaint: Extremity Injury, Lower Stated Complaint: toe pain Time Seen by Provider: 06/19/21 17:55 History of Present Illness HPI Narrative: 50-year-old male presents to the emergency room with complaints of right great toe pain. Patient states that 2 days ago he had an ingrown toe nail removed by dye range tender. Patient states that since the procedure, he has noticed an increase amount of swelling, tenderness, erythema. Patient was given a topical clindamycin ointment, which he says has not relieved symptoms. Related Data Home Medications Medication Instructions Recorded Confirmed Eliquis 5 mg PO BID 04/22/21 06/17/21 Allergies Allergy/AdvReac Type Severity Reaction Status Date / Time bupropion Allergy Mild Rash Verified 06/17/21 10:28 Sulfa (Sulfonamide Allergy Mild Unknown Verified 06/17/21 10:28 Antibiotics) cephalexin Allergy Unknown Other Verified 06/17/21 10:28 Penicillins Allergy Unknown Unknown Verified 06/17/21 10:28 sulfadiazine Allergy Unknown Unknown Verified 06/17/21 10:28 sulfanilamide Allergy Unknown Unknown Verified 06/17/21 10:28 tetracycline Allergy Unknown Other Verified 06/17/21 10:28 Review of Systems Review of Systems: CONSTITUTIONAL: Denies fever, chills, or sweats. EYES: Denies visual changes, redness, or discharge. ENT: Denies rhinorrhea, congestion, sore throat, or otalgia. CARDIOVASCULAR: Denies chest pain, palpitations, or edema. RESPIRATORY: Denies cough or dyspnea. GASTROINTESTINAL: Denies abdominal pain, nausea, vomiting, or diarrhea. GENITOURINARY: Denies dysuria or hematuria. SKIN: Denies rash or itching. MUSCULOSKELETAL: Pain to the right great toe NEUROLOGIC: Denies headache, numbness, dizziness, or weakness. PSYCHIATRIC: Denies anxiety or depression. [facility] Past Medical History Medical History COPD (chronic obstructive pulmonary disease) Depression Esophageal cancer History of DVT (deep vein thrombosis) Tobacco use Surgical History Surgical History H/O colonoscopy with polypectomy History of esophagogastroduodenoscopy (EGD) History of fasciotomy Right lower extremity History of insertion of tunneled central venous catheter (CVC) with port S/P lumbar fusion Family History Family History Unknown No problems noted. 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 The patient had 3 children but 1 in a motor vehicle accident and he has 1 stepson. The patient uses edible marijuana as well as CBD. He smokes 10-15 cigarettes a day. He drinks about half a bottle whiskey a day. He is employed full-time. Code status full code. Smoking packs per day: 2 Smoking cigarettes per day: 40.0 Years smoked: 13 Smoking pack-years: 26.00 Smoking status: Current every day smoker Tobacco type: cigarettes Second hand tobacco smoke exposure: Yes Additional smoking assessment comments: down to 1/2 pack a day currently Alcohol intake: current Drinks per week: 56 Alcohol use details: 6/ - [employer] Substance use: current Substance use type: marijuana Last use: 05/11/21 Gender identity (if verbalized by the patient): Male Sexual Orientation (if Verbalized by the Patient): Straight or Heterosexual Spiritual care concerns: No Exam Narrative: GENERAL: Well-appearing, well-nourished, and in no acute distress. HEAD: Normocephalic, atraumatic. EYES: PERRLA and EOMI. ENT: Nares clear, no rhinorrhea or epistaxis. Mucous membranes moist. NECK: Supple. No adenopathy or masses. CHEST: Clear to auscultation. No respiratory distress. No wheezes rales or rhonchi HEART: Regular rate and rhythm. No murmur heard. Normal peripheral pulses. ABDOMEN: Soft,
== END 2021-06-19 18:23 | disposition home or self-care (01) ==
PROVIDERS: Emergency Provider Nurse Practitioner Family; PCP Family Medicine
DX: L03.031 Cellulitis of right toe (principal); J44.9 Chronic obstructive pulmonary disease, unspecified; F32.A Depression, unspecified; Z86.718 Personal history of other venous thrombosis and embolism; Z79.01 Long term (current) use of anticoagulants; Z98.1 Arthrodesis status; F17.210 Nicotine dependence, cigarettes, uncomplicated
CPT/HCPCS: 99283